=== PATIENT | female | born 1995 | race American Indian/Alaskan Native ===

== ENCOUNTER 2017-03-28 09:55 | Emergency (ER) | payer MEDICAID ==
[2017-03-28] MEDS ORDERED: Sodium Chloride 0.9% 1,000 ML IV ONE (10:37)
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
[2017-03-28 11:02] VITALS: BP 131/77
[2017-03-28 11:10] LABS: CHLORIDE,CL 104 mmol/L (101-111); SODIUM,NA 139 mmol/L (135-145)
[2017-03-28] MEDS ORDERED: Ketorolac 30 MG/ML SDV IVPUSH ONE (11:22)
[2017-03-28] MEDS ORDERED: Ondansetron 4 MG/2 ML SDV IV ONE (11:22)
== END 2017-03-28 12:02 | disposition home or self-care (01) ==
LOC: DL.ED 09:55
DX: G44.209 Tension-type headache, unspecified, not intractable (principal); E86.0 Dehydration; H54.7 Unspecified visual loss; E05.90 Thyrotoxicosis, unspecified without thyrotoxic crisis or storm; F17.210 Nicotine dependence, cigarettes, uncomplicated; Z88.1 Allergy status to other antibiotic agents
CPT/HCPCS: 36415; 80053; 80305; 81001; 81025; 85025; 96361; 96374; 96375; 99284; J1885; J2405; J7030

== ENCOUNTER 2017-05-25 14:54 | Emergency (ER) | payer MEDICAID ==
[2017-05-25 15:19] VITALS: BP 127/67
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
[2017-05-25 15:55] LABS: CHLORIDE,CL 102 mmol/L (101-111); SODIUM,NA 136 mmol/L (135-145)
== END 2017-05-25 16:37 | disposition home or self-care (01) ==
LOC: DL.ED 14:54
DX: O20.0 Threatened abortion (principal); O99.330 Smoking (tobacco) complicating pregnancy, unspecified trimester; F17.210 Nicotine dependence, cigarettes, uncomplicated; Z88.8 Allergy status to other drugs, medicaments and biological substances
CPT/HCPCS: 36415; 80053; 84702; 85025; 86900; 86901; 87070; 87077; 87186; 99284

== ENCOUNTER 2017-06-02 18:54 | Emergency (ER) | payer MEDICAID ==
[2017-06-02 19:17] VITALS: BP 126/80
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
== END 2017-06-02 19:40 | disposition home or self-care (01) ==
LOC: DL.ED 18:54
DX: O99.89 Other specified diseases and conditions complicating pregnancy, childbirth and the puerperium (principal); O99.333 Smoking (tobacco) complicating pregnancy, third trimester; M25.512 Pain in left shoulder; Z88.8 Allergy status to other drugs, medicaments and biological substances
CPT/HCPCS: 99283

== ENCOUNTER 2019-05-31 22:58 | Emergency (ER) | payer MEDICAID ==
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
[2019-05-31 23:59] LABS: ANION GAP 12.6; CHLORIDE,CL 102 mmol/L (101-111); SODIUM,NA 134 mmol/L (135-145)
[2019-06-01] MEDS: Diphtheria,Pertussis(Acell),Tetanus Vaccine 0.5 ML SDV IM ONE (00:36)
[2019-06-01] MEDS: Clindamycin HCl 150 MG Cap PO ONE (01:05)
[2019-06-01 01:06] VITALS: BP 105/63; PULSE 71
== END 2019-06-01 01:09 | disposition home or self-care (01) ==
LOC: DL.ED 22:58
DX: L03.114 Cellulitis of left upper limb (principal); D64.9 Anemia, unspecified; F32.9 Major depressive disorder, single episode, unspecified; F41.9 Anxiety disorder, unspecified; F17.210 Nicotine dependence, cigarettes, uncomplicated; Z23 Encounter for immunization; Z88.1 Allergy status to other antibiotic agents
CPT/HCPCS: 36415; 80048; 85025; 90471; 90715; 99283; A9270-GY